=== PATIENT | female | born 1960 | race Caucasian/White ===

== ENCOUNTER 2016-10-24 06:45 | Emergency (ER) | payer OTHER ==
[~2016-10-24 06:45] MED LIST: AMITRIPTYLINE H25 MG PO; GABAPENTIN600 MG PO; KEPPRA500 M2 PO; LEVAQUIN750 MG PO; LOPID600 MG PO; NORCO 10-325 TA1 TAB PO; TAGAMET PO; TAGAMET200 MG PO; ZESTORETIC 20/11 TA1 PO; ZOFRAN ODT4 MG PO
== END 2016-10-24 08:45 | disposition home or self-care (01) ==
LOC: CED 06:45
DX: F41.9 Anxiety disorder, unspecified (principal); G40.909 Epilepsy, unspecified, not intractable, without status epilepticus; I10 Essential (primary) hypertension; K21.9 Gastro-esophageal reflux disease without esophagitis
CPT/HCPCS: 99284